=== PATIENT | male | born 1975 ===

== ENCOUNTER 2023-07-15 06:31 | Day surgery (SDC) | payer OTHER ==
[2023-07-12 10:21] LABS: HEMATOCRIT 41.3 % (39.0-48.0); HEMOGLOBIN 13.4 g/dL (13-16.00); MEAN CELL VOLUME 96.3 fL (80.0-100.00); MEAN CORPUSCULAR HEMOGLOBIN 31.2 pg (27.00-32.0); MEAN CORPUSCULAR HGB CONC 32.4 g/dl (32.0-36.0); PLATELET COUNT 286 K/uL (150-450); RED BLOOD COUNT 4.29 M/uL (4.00-6.00); RED CELL DISTRIBUTION WIDTH 12.2 % (11.5-14.5)
[~2023-07-15] VITALS: Ht 157.5 cm; Wt 69.4 kg
[~2023-07-15 06:31] MED LIST: AVAPRO300 MG PO; HUMALOG MIX 75/23 ML SQ
== END 2023-07-15 19:40 | disposition home or self-care (01) ==
LOC: CIR.AMB 06:31
PROVIDERS: ATTEND Otolaryngology
DX: H61.21 Impacted cerumen, right ear (principal); H69.93 Unspecified Eustachian tube disorder, bilateral; Z20.822 Contact with and (suspected) exposure to COVID-19; Z88.0 Allergy status to penicillin; I10 Essential (primary) hypertension; E11.9 Type 2 diabetes mellitus without complications